=== PATIENT | female | born 1995 | race Caucasian/White ===

== ENCOUNTER 2017-08-21 11:14 | Emergency (ER) | payer OTHER ==
[~2017-08-21] VITALS: Ht 172.7 cm; Wt 71.7 kg
[2017-08-21 12:27] LABS: microscopic required? NO
[2017-08-21 12:33] LABS: UA SPECIFIC GRAVITY 1.015 (1.005-1.035); urine erythrocyte NEGATIVE (NEGATIVE)
[2017-08-21 13:41] LABS: BASOPHIL % 0.4 % (0-2); PLATELET COUNT 233 x10^3mcL (130-400); RED CELL DISTRIBUTION WIDTH 13.5 % (11.5-14.5)
[2017-08-21 14:25] VITALS: BP 118/65
== END 2017-08-21 14:25 | disposition home or self-care (01) ==
LOC: ED 11:14 → EDBD 11:14 → ED 14:25
PROVIDERS: Emergency Medicine
DX: O20.0 Threatened abortion (principal); Z3A.23 23 weeks gestation of pregnancy
CPT/HCPCS: 36415